=== PATIENT | female | born 1995 | race Caucasian/White ===

== ENCOUNTER → 2018-01-01 | Outpatient (CLI) | payer OTHER ==
[2018-01-01] MEDS: LIDOCAINE 1% Multi-Dose 20 ML VIAL. ID (13:30)
[2018-01-01] MEDS: GADOBUTROL 7.5 MMOL/7.5 ML VIAL INT ART (13:30)
[2018-01-01] MEDS: IOHEXOL 300 MG/ML 50 ML VIAL. INT ART (13:30)
== END | disposition home or self-care (01) ==
LOC: KCIC 12:14
DX: S46.012A Strain of muscle(s) and tendon(s) of the rotator cuff of left shoulder, initial encounter (principal); S43.492A Other sprain of left shoulder joint, initial encounter; X58.XXXA Exposure to other specified factors, initial encounter; Y93.89 Activity, other specified; Y92.89 Other specified places as the place of occurrence of the external cause; Y99.8 Other external cause status
CPT/HCPCS: 73040; 73222; A9585; Q9967

== ENCOUNTER → 2018-02-06 | Outpatient (CLI) | payer OTHER ==
[2018-02-06 10:40] LABS: ADD MAN DIFF? NO
[2018-02-06 10:45] LABS: BASO % 0 % (0-3); EOS % 1 % (0-3); HEMATOCRIT 38.4 % (36.0-47.0); HEMOGLOBIN 13.4 g/dL (12.0-15.5); LYMPH # 1.7 x10^3/uL (1.0-4.8); LYMPH % 27 % (24-48); MEAN CORPUSCULAR HEMOGLOBIN 31 pg (25-35); MEAN CORPUSCULAR HGB CONC 35 g/dL (31-37); MEAN CORPUSCULAR VOLUME 88 fL (79-100); MONO # 0.4 x10^3/uL (0.0-1.1); MONO % 7 % (0-9); NEUT # 4.1 x10^3uL (1.8-7.7); NEUT % 65 % (31-73); PLATELET COUNT 239 x10^3/uL (140-400); RED BLOOD COUNT 4.37 x10^6/uL (3.50-5.40); RED CELL DISTRIBUTION WIDTH 12.8 % (11.5-14.5); WHITE BLOOD COUNT 6.3 x10^3/uL (4.0-11.0)
[2018-02-06 11:31] LABS: ANION GAP 7 (6-14); BLOOD UREA NITROGEN 13 mg/dL (7-20); CALCIUM 8.9 mg/dL (8.5-10.1); CARBON DIOXIDE 28 mmol/L (21-32); CHLORIDE 107 mmol/L (98-107); CREATININE 0.9 mg/dL (0.6-1.0); GFR 78.3; GLUCOSE 93 mg/dL (70-99); POTASSIUM 4.1 mmol/L (3.5-5.1); SODIUM 142 mmol/L (136-145)
== END | disposition home or self-care (01) ==
LOC: LAB 06:41
DX: Z01.818 Encounter for other preprocedural examination (principal)
CPT/HCPCS: 36415; 80048; 85025

== ENCOUNTER → 2019-02-10 | Outpatient (CLI) | payer OTHER ==
[~2019-02-10] MED LIST: GADOTERATE 7.5 MMOL/15ML VIAL. INT ART ONE; IOHEXOL 300 MG/ML 50 ML VIAL. INT ART ONE; LIDOCAINE 1% Multi-Dose 20 ML VIAL. ID ONE
--- NOTE | 2019-02-10 18:31 | KCIC ---
MRI arthrogram of the left shoulder HISTORY: Left shoulder pain and instability. TECHNIQUE: Routine 4 plane sequences are obtained after intra-articular contrast injection. COMPARISON: January 02, 2018. FINDINGS: The acromioclavicular joint is intact. No evidence of a rotator cuff tear. No significant subdeltoid bursal fluid or contrast accumulation. Postsurgical changes are identified with superior, anterior and inferior anchor screws. Linear defect at the base of the anteroinferior labrum, located between the 3:00 anchor screw and 6:00 anchor screw, concerning for recurrent tear. The previously seen small posterior labral defect is no longer evident. No evidence of superior labral tear. Note that with abduction and external rotation, there is slight posterosuperior shift of the humeral head relative to the glenoid. Biceps tendon is intact. No evidence of acute articular cartilage defect. No aggressive bone destruction. No acute fracture. No acute soft tissue abnormality. IMPRESSION: 1. Small defect at the base of the anteroinferior labrum between 2 anchor screws, concerning for recurrent tear. 2. Small posterior labral defect is not well seen today. 3. Mild posterosuperior shift of the humeral head contact point with abduction and external rotation. Electronically signed by: Gulshan Larsen MD (02/10/2019 6:28 PM) [facility]
--- NOTE | 2019-02-10 18:48 | KCIC ---
PROCEDURE: Left shoulder injection using fluoroscopic guidance, prior to MR. HISTORY: Shoulder pain. TECHNIQUE: The procedure was explained to the patient as were potential risks, including among others infection, bleeding or allergic reaction. All questions were answered. Informed written and verbal consent was obtained. The shoulder was prepped and draped in the usual sterile manner. Following administration of local anesthetic, a 22-gauge needle was advanced into the anterior shoulder. Following negative aspiration, 12 cc of a solution of 5cc Omnipaque-300 contrast, 5 cc 1% lidocaine, 10 cc normal saline, and 0.1 cc gadolinium was injected without difficulty. The needle was removed. There was good hemostasis at the injection site. The patient left in stable condition without immediate complication. Patient was given instructions in the event of an unexpected delayed adverse complication. A single spot image is obtained. FLUOROSCOPY TIME:?29 seconds Electronically signed by: Gulshan Larsen MD (02/10/2019 6:45 PM) [facility]
== END | disposition home or self-care (01) ==
LOC: KCIC 13:23
PROVIDERS: ATTEND Orthopaedic Surgery
DX: M25.312 Other instability, left shoulder (principal)
CPT/HCPCS: 23350; 73222; 77002; A9575; Q9967; 73040

== ENCOUNTER 2019-03-15 18:58 | Emergency (ER) | payer OTHER ==
[~2019-03-15] VITALS: Ht 160 cm; Wt 63.0 kg
[2019-03-15 19:22] VITALS: BP 118/75
--- NOTE | 2019-03-15 20:08 | PHYS DOC ---
Past Medical History Additional Past Medical Histor: CONGENITAL ADREANAL HYPER- DISEASE (KECIA CALDERON APRN) Additional Past Surgical Histo: ARM 10 DAYS AGO (KECIA CALDERON APRN) Alcohol Use: Occasionally Drug Use: None (KECIA CALDERON APRN) Adult General Chief Complaint Chief Complaint: CONSTIPATION HPI HPI Patient is a 24 year old [female] who presents with [abdominal pain and constipation. Patient reports she had surgery on her left rotator cuff presents with 10 days ago, reports she has not had any bowel movements since that time. Reports she has contacted her surgeon who recommended she take some magnesium citrate, which she had taken 2 bottles today and has continued not to have any bowel movements. Does report she had been taking some Colace prior to the surgery, has continued to take them and continues to have no bowel movement. Denies any nausea or vomiting. Does complain of some increasing abdominal pain. Does report she has been taking pain medications as prescribed for her shoulder injury and surgery.] (KECIA CALDERON APRN) Review of Systems Review of Systems Constitutional: Denies fever or chills [] Eyes: Denies change in visual acuity, redness, or eye pain [] HENT: Denies nasal congestion or sore throat [] Respiratory: Denies cough or shortness of breath [] Cardiovascular: No additional information not addressed in HPI [] GI: Denies nausea, vomiting, bloody stools or diarrhea complaints of constipation and abdominal pain[] : Denies dysuria or hematuria [] Musculoskeletal: Denies back pain or joint pain [] Integument: Denies rash or skin lesions [] Neurologic: Denies headache, focal weakness or sensory changes [] Endocrine: Denies polyuria or polydipsia [] All other systems were reviewed and found to be within normal limits, except as documented in this note. (KECIA CALDERON APRN) Current Medications Current Medications Current Medications Medications (Trade) Dose Ordered Sig/Jaci Start Time Stop Time Status Last Admin Dose Admin Docusate Sodium (Enemeez) 283 mg 1X ONCE 03/15/19 22:00 03/15/19 22:01 DC 03/15/19 21:30 283 MG Oxycodone/ Acetaminophen (Percocet 5/325) 2 tab 1X ONCE 03/15/19 22:00 03/15/19 22:01 DC 03/15/19 22:41 2 TAB (EDIE PONCE MD) Allergies Allergies Allergies Coded Allergies Type Severity Reaction Last Updated Verified No Known Drug Allergies 01/01/18 No (EDIE PONCE MD) Physical Exam Physical Exam Constitutional: Well developed, well nourished, no acute distress, non-toxic appearance. [] Neck: Normal range of motion, no tenderness, supple, no stridor. [] Cardiovascular:Heart rate regular rhythm, no murmur [] Lungs & Thorax: Bilateral breath sounds clear to auscultation [] Abdomen: Bowel sounds diminished, soft, moderate widespread tenderness, no masses, no pulsatile masses. [] Skin: Warm, dry, no erythema, no rash. [] Back: No tenderness, no CVA tenderness. [] Extremities: No tenderness, no cyanosis, no clubbing, ROM intact, no edema. Left shoulder in splint following surgery] Neurologic: Alert and oriented X 3, normal motor function, normal sensory function, no focal deficits noted. [] Psychologic: Affect normal, judgement normal, mood normal. [] (KECIA CALDERON APRN) Current Patient Data Vital Signs Vital Signs Date Time Temp Pulse Resp B/P (MAP) Pulse Ox O2 Delivery O2 Flow Rate FiO2 03/15/19 22:41 16 99 Room Air 03/15/19 19:22 98.3 94 118/75 (89) 98.3 (EDIE PONCE MD) EKG EKG [] (KECIA CALDERON APRN) Radiology/Procedures Radiology/Procedures @[address] [place] - Appears to have rectal impaction, large amount of stool in rectum. [] (KECIA CALDERON APRN) Course & Med Decision Making Course & Med Decision Making Pertinent Labs and Imaging studies reviewed. (See chart for details) [Following an enema, patient reports she had a large bowel movement, reports no discomfort at this time. States she feels much better. States she feels like she is ready to go home. Rest your fiber and fluids, discussed taking her stool softeners at home. Patient agreement with no questions or concerns] (KECIA CALDERON APRN) Course & Med Decision Making Staff Physician Addendum: I was working in the ER during the course of this patient's visit. I was available for consultation as needed, but I was not directly involved in the care of this patient. (EDIE PONCE MD) Dragon Disclaimer Dragon Disclaimer This electronic medical record was generated, in whole or in part, using a voice recognition dictation system. (KECIA CALDERON APRN) Departure Departure Referrals: NO PCP (PCP) KECIA CALDERON APRN Mar 15, 2019 20:08 EDIE PONCE MD Mar 16, 2019 21:44
[2019-03-15] MEDS ORDERED: oxyCODONE/APAP 5/325 1 TAB TABLET PO ONE (22:00)
[2019-03-15] MEDS ORDERED: DOCUSATE SODIUM 283 MG/5 ML ENEMA. PR ONE (22:00)
--- NOTE | 2019-03-16 07:52 | RAD ---
Examination: KUB History: Constipation Comparison/Correlation: None Findings: Frontal views of the abdomen were obtained with the patient supine. Partially visualized lung bases are unremarkable. No suspicious abdominal calcifications. No bowel obstruction. Moderate quantity of stool in the distal colon noted. Bony structures are unremarkable. Pelvic calcifications probably represent phleboliths are noted. Impression: No acute process. Electronically signed by: Bird Weaver MD (03/16/2019 7:49 AM) [facility]
== END 2019-03-15 23:17 | disposition home or self-care (01) ==
LOC: ER 18:58
DX: K59.00 Constipation, unspecified (principal)
CPT/HCPCS: 74018; 99283

== ENCOUNTER → 2019-10-21 | Outpatient (CLI) | payer OTHER ==
[~2019-10-21] MED LIST changes: +0.9 % SODIUM CHLORIDE 10 ML DISP.SYRIN. ID ONE; +GADOTERATE 5 MMOL/10ML VIAL. INT ART ONE; -GADOTERATE 7.5 MMOL/15ML VIAL. INT ART ONE
--- NOTE | 2019-10-21 12:59 | KCIC ---
MRI arthrogram of the left shoulder HISTORY: Left shoulder pain. Decreased range of motion. Labral repair surgery since the prior MRI. TECHNIQUE: Routine multiplanar sequences are obtained. COMPARISON: 02/10/2019. FINDINGS: The acromioclavicular joint is intact. No evidence of rotator cuff tear. No significant fluid or contrast in the subdeltoid bursa. Multiple anchor screws are identified at the glenoid. The previously seen contrast filled defect at the anteroinferior labrum is no longer identified. There is some minimal linear signal in this area, but this appears slightly less intense than contrast and may just represent some sequela of the previous tear or postsurgical signal. Aber series 11, image 10. Labrum otherwise intact without evidence of new tear. No acute articular cartilage defect or advanced DJD. Biceps tendon intact. No acute fracture. No aggressive bone destruction or marrow edema. Mild posterosuperior shift of the glenohumeral contact point with abduction and external rotation is identified, similar to the prior exam. IMPRESSION: 1. The previously seen anteroinferior labral tear is no longer identified. There is some minimal linear signal in this area, could be sequela of the previous tear or related to surgery. 2. No new labral tear is identified. Electronically signed by: Gulshan Larsen MD (10/21/2019 12:56 PM) [id number]
--- NOTE | 2019-10-21 13:00 | KCIC ---
PROCEDURE: Left shoulder injection using fluoroscopic guidance, prior to MR. HISTORY: Shoulder pain. TECHNIQUE: The procedure was explained to the patient as were potential risks, including among others infection, bleeding or allergic reaction. All questions were answered. Informed written and verbal consent was obtained. The shoulder was prepped and draped in the usual sterile manner. Following administration of local anesthetic, a 22-gauge needle was advanced into the anterior shoulder. Following negative aspiration, 12 cc of a solution of 5cc Omnipaque-300 contrast, 5 cc 1% lidocaine, 10 cc normal saline, and 0.1 cc gadolinium was injected without difficulty. The needle was removed. There was good hemostasis at the injection site. The patient left in stable condition without immediate complication. A single spot image is obtained. FLUOROSCOPY TIME:?12 seconds Electronically signed by: Gulshan Larsen MD (10/21/2019 12:57 PM) [id number]
== END | disposition home or self-care (01) ==
LOC: KCIC 10:08
PROVIDERS: ATTEND Orthopaedic Surgery
DX: M25.512 Pain in left shoulder (principal); M75.42 Impingement syndrome of left shoulder
CPT/HCPCS: 73040; 73222; A9575; J3490; Q9967